=== PATIENT | female | born 2000 | race Hispanic/Latino ===

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

== ENCOUNTER 2019-03-24 15:32 | Emergency (ER) | payer MEDICAID, OTHER | END 2019-03-24 16:27 | disposition home or self-care (01) | LOC: EDH 15:32 | DX: J06.9 Acute upper respiratory infection, unspecified (principal); J45.909 Unspecified asthma, uncomplicated; Z90.49 Acquired absence of other specified parts of digestive tract; Z88.8 Allergy status to other drugs, medicaments and biological substances | CPT/HCPCS: 99281 ==

== ENCOUNTER 2024-11-16 12:45 | Emergency (ER) | payer MEDICAID ==
[~2024-11-16] VITALS: Ht 152.4 cm; Wt 83.9 kg
[2024-11-16 13:57] LABS: COVID19 (SARS ANTIGEN RAPID) PRESUMPTIVE NEGATIVE (NEGATIVE); INFLUENZA TYPE A Negative For Type A (NEGATIVE); INFLUENZA TYPE B Negative For Type B (NEGATIVE)
--- NOTE | 2024-11-16 14:15 | ERN ---
ED Note History of Present Illness Stated Complaint: SEVERE HEADACHE Chief Complaint: Headache Time Seen by MD: 12:46 Time Seen by Midlevel: 12:46 Dictation: The patient is a 24-year-old female with a history of asthma who presents to the emergency department with complaints of occasional headaches and nonproductive cough onset two days ago. Patient reports she usually gets headaches at home. Denies any current headache but reports she feels like she is going to get one. Patient denies any fevers, head trauma, fevers, vomiting or diarrhea. Allergies: Uncoded Allergies: GRAPE MOTRIN (Allergy, Intermediate, SWELLING, 08/06/18) NKDA (Allergy, Unknown, 01/15/18) Home Meds No Active Prescriptions or Reported Meds Past Medical History Past Medical History: Asthma Surgical History: Appendectomy LMP: Nov 02, 2024 : 4 Para: 3 RN Note Reviewed/Agreed w/PFSH: Yes Review of System Dictation Constitutional: Negative for fever,chills, and weight loss Eyes: Negative for injury, pain,redness, and discharge ENT: Negative for injury,pain or swelling Cardiovascular: Negative for chest pain, palpitations, and edema Respiratory: Negative for shortness of breath, , and wheezing, positive for cough Abdomen/GI: Negative for abdominal pain, nausea, vomiting, diarrhea, and constipation Back: Negative for injury and pain : Negative for injury, bleeding and discharge MS/Extremity: Negative for injury and deformity Skin: Negative for rash, and discoloration Neuro: Negative for weakness, numbness, tingling, and seizure positive for headache Psych: Negative for suicide ideation, homicidal ideation, and hallucinations Initial Vital Sign VS Vital Signs Date Time Temp Pulse Resp B/P (MAP) Pulse Ox O2 Delivery O2 Flow Rate FiO2 11/16/24 13:13 98.6 85 20 127/86 100 Room Air 0 Physical Exam Dictation Vital Signs reviewed General Appearance: Alert, oriented x 3, no acute distress, well developed, nourished. Head and Face: non-traumatic. Eyes: PERRL, pink conjunctivas, eyelid no trauma, anterior chamber with arcus senilis. Ears: Pinnas intact and no signs of trauma or erythema ear canals clear and no discharge TM no erythema Nose: No discharge, no bleeding. Oropharynx: Mouth normal, tongue pink. pharynx clear,no erythema, tonsils no exudates, no abscesses noted, mucous membrane moist Neck: Supple, non-tender, no thyromegaly, no masses, no JVD, no bruits Breast:Deferred Chest:No tenderness, no crepitus, no paradoxical movement, no retractions Lungs:Clear, well-ventilated, symmetric, no rales, no wheezing, no rhonchi, no stridor, good breath sounds bilaterally Heart: Regular rate, regular rhythm, no murmur, no gallops Vascular: no peripheral edema, Abdomen: Soft, positive bowel sounds, nondistended, no guarding, nontender, no rebound, no masses no hepatomegaly, no splenomegaly, no Mcgrath's sign, no hernias. Rectal: Deferred Genital: Deferred Neurological: Normal speech, motor function intact, sensory function intact , no slurred speech, no facial droop, Musculoskeletal: Neck nontender, full range of motion, back nontender, full range of motion, Extremities: nontender, full range of motion Skin: Color pink, dry, no turgor, no rash, no lacerations, no abrasions, no contusions. Lymphatic: Deferred Results (Laboratory/Radiology) Laboratory/Radiology Laboratory Tests Test 11/16/24 13:19 Influenza Type A Antigen Negative For Type A Influenza Type B Antigen Negative For Type B SARS-CoV-2 Antigen (Rapid) PRESUMPTIVE NEGATIVE Labs Reviewed?: Yes ED Course ED Course Orders Procedure Category Date Status Time Acetaminophen 500mg PHA 11/16/24 Complete Tab (Tylenol 500mg T 13:00 Covid19 (Sars Antigen LAB 11/16/24 Complete Rapid) 13:16 Influenza Type A & B, LAB 11/16/24 Complete Rapid 13:16 Current Medications Medications (Trade) Dose Ordered Sig/Chris Route PRN Reason Start Time Stop Time Status Last Admin Dose Admin Acetaminophen (TYLenol 500MG TAB) 1,000 mg ONCE ONCE PO 11/16/24 13:00 11/16/24 13:01 DC Vital Signs Date Time Temp Pulse Resp B/P (MAP) Pulse Ox O2 Delivery O2 Flow Rate FiO2 11/16/24 13:13 98.6 85 20 127/86 100 Room Air 0 Medical Decision Making MDM The patient is a 24-year-old female with a history of asthma who presents to the emergency department with complaints of occasional headaches and nonproductive cough onset two days ago. Patient reports she usually gets headaches at home. Denies any current headache but reports she feels like she is going to get one. Patient denies any fevers, head trauma, fevers, vomiting or diarrhea. Serology negative. Patient continues neurologically intact. No current headache. Patient in nontoxic appearance. Will be discharged to follow up with PCP. Differential diagnosis: Headache, upper respiratory infection, COVID-19 infection Need for hospitalization: Patient does not meet criteria for hospitalization. There are no social concerns with this patient. DX & DISP Disposition: Discharge Departure Impression: Primary Impression: URI (upper respiratory infection) Additional Impression: Headache Condition: Stable Scripts No Active Prescriptions or Reported Meds Additional Instructions: Please follow up with the primary doctor in 1-2 days. If symptoms worsen please return to ER. FOLLOW-UP WITH PRIMARY CARE PROVIDER IN 1 TO 2 DAYS. TAKE MEDICATIONS DIRECTED HERE IN THE EMERGENCY ROOM. OKAY TO CONTINUE HOME MEDICATIONS UNLESS OTHERWISE DISCUSSED DURING YOUR VISIT IN THE EMERGENCY ROOM TODAY. RETURN TO YOUR NEAREST EMERGENCY ROOM IF SYMPTOMS WORSEN OR IF THERE IS NO IMPROVEMENT. CALL 911 IF YOU NEED IMMEDIATE ASSISTANCE. TAKE TYLENOL OR MOTRIN [id number] NEEDED AND IF NO CONTRAINDICATIONS ARE PRESENT. INCREASE ORAL HYDRATION. A WOUND CULTURE OR URINE CULTURE WAS ORDERED HERE IN THE EMERGENCY ROOM DEPARTMENT PLEASE FOLLOW-UP WITH PRIMARY CARE PROVIDER AND ADVISE THEM TO GET REPEAT PORTS FROM OUR FACILITY. IF YOU HAD ANY ANGELES WRAP/SPLINTS THAT WERE APPLIED HERE, PLEASE DO NOT REMOVE THEM UNTIL YOU SEE YOUR PRIMARY CARE OR SPECIALTY. Referrals: COLE KOO MD (PCP) Time of Disposition: 14:14 I have reviewed the case, and I agree with, Diagnosis and Plan [facility] Nov 16, 2024 14:15
[2024-11-16] MEDS: acetaMINOPHEN 500 MG TABLET PO ONE (14:28)
[2024-11-16 14:29] VITALS: BP 125/85; PULSE 80; RESP 16; TEMP 98.6; O2SAT 98
== END 2024-11-16 14:41 | disposition home or self-care (01) ==
LOC: EDH 12:45
DX: J06.9 Acute upper respiratory infection, unspecified (principal); R51.9 Headache, unspecified; J45.909 Unspecified asthma, uncomplicated; Z20.822 Contact with and (suspected) exposure to COVID-19; Z90.49 Acquired absence of other specified parts of digestive tract
CPT/HCPCS: 87426; 87804; 99283